=== PATIENT | male | born 1985 | race Two or more races ===

== ENCOUNTER 2021-06-18 19:28 | Emergency (ER) | payer SELFPAY ==
[~2021-06-18] VITALS: Ht 180.3 cm; Wt 104.3 kg
[2021-06-18 19:28] VITALS: BP 184/91
--- NOTE | 2021-06-18 19:28 | NUR ---
BIBA TAKEN TO BED #2
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
[2021-06-18] MEDS ORDERED: LORazepam 2 MG/ML VIAL IM ONE (20:30)
[2021-06-18] MEDS ORDERED: NACL 0.9% 1,000 ML IV ONE (23:05)
[2021-06-18] MEDS ORDERED: LORazepam 2 MG/ML VIAL IVP ONE (23:05)
--- NOTE | 2021-06-19 00:20 | NUR ---
PT IS COMING OFF HIGH FROM DRUGS. PT IS ANSWRING QUESTIONS AND FOLLOWING COMMANDS. HR DECREASING AND PT IS COOPERATING. NO NEED FOR ATIVAN AT THIS TIME. ALL VSS
--- NOTE | 2021-06-19 02:00 | NUR ---
Patient discharged with v/s stable. Written and verbal after care instructions given and explained. Patient verbalized understanding. Ambulatory with steady gait. All questions addressed prior to discharge. Advised to follow up with PMD.
[2021-06-19 02:20] VITALS: BP 144/83
--- NOTE | 2021-06-19 02:34 | NUR ---
The patient's care was reviewed and supervised by Kathie Wynn RN.
== END 2021-06-19 02:00 | disposition home or self-care (01) ==
LOC: MED 19:28
DX: F15.10 Other stimulant abuse, uncomplicated (principal)
CPT/HCPCS: 96360; 96372; 99284; J2060; J7030; 96361; 96374

== ENCOUNTER 2021-06-20 05:39 | Emergency (ER) | payer SELFPAY ==
[~2021-06-20] VITALS: Ht 177.8 cm; Wt 104.3 kg
--- NOTE | 2021-06-20 06:07 | NUR ---
PT DOES NOT ALLOW FOR FULL ASSESSMENT. FAMILY CALLED BACK TO HELP. UNABLE TO OBTAIN FULL VITAL SIGNS.
[2021-06-20] MEDS ORDERED: LORazepam 1 MG TAB PO ONE (06:30)
== END 2021-06-20 06:32 | disposition left against medical advice (07) ==
LOC: MED 05:39
DX: F15.10 Other stimulant abuse, uncomplicated (principal)
CPT/HCPCS: 99281